=== PATIENT | male | born 1990 | race Caucasian/White ===

== ENCOUNTER 2017-12-19 17:38 | Emergency (ER) | payer SELFPAY ==
[~2017-12-19] VITALS: Ht 188 cm; Wt 81.9 kg
[2017-12-19] MEDS ORDERED: HYDROcodone/APAP 5/325 TABLET PO ONE (19:30)
[2017-12-19] MEDS ORDERED: HYDROcodone/APAP 5/325 TABLET ONE (19:39)
[2017-12-19 19:42] VITALS: BP 132/78
== END 2017-12-19 19:44 | disposition home or self-care (01) ==
LOC: ED 19:38
DX: K02.9 Dental caries, unspecified (principal); K04.7 Periapical abscess without sinus
CPT/HCPCS: 99283

== ENCOUNTER 2018-01-23 09:12 | Emergency (ER) | payer MEDICAID, OTHER ==
[~2018-01-23] VITALS: Ht 188 cm; Wt 89.4 kg
[2018-01-23] MEDS ORDERED: HYDROcodone/APAP 5/325 TABLET PO ONE (10:00)
[2018-01-23] MEDS ORDERED: HYDROcodone/APAP 5/325 TABLET ONE (10:11)
[2018-01-23 10:21] VITALS: BP 139/105
== END 2018-01-23 10:24 | disposition home or self-care (01) ==
LOC: ED 10:20
DX: K02.9 Dental caries, unspecified (principal); F17.210 Nicotine dependence, cigarettes, uncomplicated
CPT/HCPCS: 99283

== ENCOUNTER 2018-05-06 18:36 | Emergency (ER) | payer MEDICAID ==
[~2018-05-06] VITALS: Ht 188 cm; Wt 79.0 kg
[2018-05-06 18:38] VITALS: BP 134/89
== END 2018-05-06 19:58 | disposition home or self-care (01) ==
LOC: ED 19:24
DX: A59.8 Trichomoniasis of other sites (principal); Z88.0 Allergy status to penicillin
CPT/HCPCS: 99283